=== PATIENT | male | born 1995 | race American Indian/Alaskan Native ===

== ENCOUNTER 2018-11-23 21:41 | Emergency (ER) | payer MEDICAID ==
[2018-11-23 21:50] VITALS: BP 131/83; PULSE 62; RESP 18; TEMP 98; O2SAT 100
--- NOTE | 2018-11-23 21:55 | ED PDOC ---
Arrival/HPI - General Chief Complaint: Abdominal Pain Time Seen by Provider: 11/23/18 21:43 Historian: Patient - History of Present Illness Narrative History of Present Illness (Text): 11/23/18 21:55 Gabriele Conway is a 23 year old male, with no significant past medical history, who presents to the ED complaining of diffuse body aches. Patient also reports generalized abdominal discomfort and nausea today. Patient notes he is homeless and has not had anything to eat, which he believes may be contributing to his symptoms. Patient denies any fever, chills, chest pain, shortness of breath, vomiting, diarrhea, urinary symptoms, back pain, neck pain, headache, dizziness, or any other complaints. Symptom Onset: Gradual Symptom Course: Unchanged Activities at Onset: Light Context: Home Past Medical History - Provider Review Nursing Documentation Reviewed: Yes - Psychiatric Hx Substance Use: No Family/Social History - Physician Review Nursing Documentation Reviewed: Yes Family/Social History: Unknown Family HX Smoking Status: Light Smoker < 10 Cigarettes Daily Hx Alcohol Use: Yes Frequency of alcohol use: Socially Hx Substance Use: No Allergies/Home Meds Allergies/Adverse Reactions: Allergies No Known Allergies Allergy (Verified 11/25/18 23:22) Home Medications: Home Meds Medication Instructions Recorded Confirmed No Known Home Med 11/23/18 11/25/18 Review of Systems - Physician Review All systems were reviewed & negative as marked: Yes - Review of Systems Constitutional: Normal. absent: Fevers Eyes: Normal ENT: Normal Respiratory: Normal. absent: SOB, Cough Cardiovascular: Normal. absent: Chest Pain Gastrointestinal: Abdominal Pain, Nausea. absent: Diarrhea Genitourinary Male: Normal. absent: Dysuria, Frequency, Hematuria, Urinary Output Changes Musculoskeletal: Myalgias. absent: Back Pain, Neck Pain Skin: Normal. absent: Rash Neurological: Normal. absent: Headache, Dizziness Endocrine: Normal Hemo/Lymphatic: Normal Psychiatric: Normal Physical Exam Vital Signs Reviewed: Yes Vital Signs Temp Pulse Resp BP Pulse Ox 11/23/18 21:49 98.0 F 62 18 131/83 100 Temperature: Afebrile Blood Pressure: Normal Pulse: Regular Respiratory Rate: Normal Appearance: Positive for: Well-Appearing, Non-Toxic, Comfortable Pain Distress: None Mental Status: Positive for: Alert and Oriented X 3 - Systems Exam Head: Present: Atraumatic, Normocephalic Pupils: Present: PERRL Extroacular Muscles: Present: EOMI Conjunctiva: Present: Normal Mouth: Present: Moist Mucous Membranes Neck: Present: Normal Range of Motion Respiratory/Chest: Present: Clear to Auscultation, Good Air Exchange. No: Respiratory Distress, Accessory Muscle Use Cardiovascular: Present: Regular Rate and Rhythm, Normal S1, S2. No: Murmurs Abdomen: No: Tenderness, Distention, Peritoneal Signs Back: Present: Normal Inspection Upper Extremity: Present: Normal Inspection. No: Cyanosis, Edema Lower Extremity: Present: Normal Inspection. No: Edema Neurological: Present: GCS=15, CN II-XII Intact, Speech Normal Skin: Present: Warm, Dry, Normal Color. No: Rashes Psychiatric: Present: Alert, Oriented x 3, Normal Insight, Normal Concentration Medical Decision Making ED Course and Treatment: 11/23/18 21:55 Impression: 23 year old male complaining of diffuse body aches, abdominal pain, and nausea. Plan: -- Labs -- Urinalysis, urine drug screen -- Reassess and disposition Prior Visits: Notes and results from previous visits were reviewed. Progress Notes: 11/24/18 00:56 Informed by RNchristopher from Emergency room. - Scribe Statement The provider has reviewed the documentation as recorded by the Juan Pablo Blanc Provider Scribe Attestation: All medical record entries made by the Scribe were at my direction and personally dictated by me. I have reviewed the chart and agree that the record accurately reflects my personal performance of the history, physical exam, medical decision making, and the department course for this patient. I have also personally directed, reviewed, and agree with the discharge instructions and disposition. Disposition/Present on Arrival - Present on Arrival Any Indicators Present on Arrival: No History of DVT/PE: No History of Uncontrolled Diabetes: No Urinary Catheter: No History of Decub. Ulcer: No History Surgical Site Infection Following: None - Disposition Have Diagnosis and Disposition been Completed?: Yes Diagnosis: Weakness Disposition: ELOPEMENT - ER ONLY Disposition Time: 01:00 Condition: UNKNOWN Discharge Instructions (ExitCare): Weakness (ED) Forms: [employer] (Romanian)
[2018-11-23 23:07] LABS: BASO # 0.03 K/mm3 (0.0-2.0); BASO % 0.2 % (0.0-3.0); EOS # 0.1 (0.0-0.7); EOS % 1.1 % (1.5-5.0); HEMOGLOBIN 14.7 g/dL (14.0-18.0); LYMPH # 2.9 (1.2-3.4); LYMPH % 23.8 % (22.0-35.0); MEAN CELL VOLUME 89.8 fl (80.0-105.0); MEAN CORPUSCULAR HEMOGLOBIN 30.7 pg (25.0-35.0); MEAN CORPUSCULAR HGB CONC 34.2 g/dl (31.0-37.0); MEAN PLATELET VOLUME 11.1 fl (7.0-11.0); MONO % 7.9 % (1.0-6.0); RBC 4.79 10^6/uL (3.5-6.1); RED CELL DISTRIBUTION WIDTH 12.9 % (11.5-14.5); WHITE BLOOD COUNT 12.3 10^3/uL (4.5-11.0)
[2018-11-23 23:16] LABS: ALB/GLOB RATIO 1.3 (1.1-1.8); ALBUMIN 4.6 g/dL (3.0-4.8); ALT/SGPT 37 U/L (7-56); AST/SGOT 55 U/L (17-59); BLOOD UREA NITROGEN 19 mg/dL (7-21); CALCIUM 9.5 mg/dL (8.4-10.5); GFR NON-AFRICAN AMERICAN > 60
[2018-11-23 23:36] LABS: BARBITURATES, UR NEGATIVE (NEGATIVE); BENZODIAZEPINES, UR NEGATIVE (NEGATIVE); OPIATES, UR NEGATIVE (NEGATIVE); PHENCYCLIDINE, UR NEGATIVE (NEGATIVE)
[2018-11-24 00:14] LABS: URINE BILIRUBIN NEGATIVE (NEGATIVE); URINE BLOOD NEGATIVE (NEGATIVE); URINE GLUCOSE (UA) NEGATIVE (NEGATIVE); URINE LEUKOCYTE ESTERASE NEGATIVE Leu/uL (NEGATIVE); URINE PROTEIN NEGATIVE mg/dL (<30 mg/dL); URINE UROBILINOGEN 0.2 E.U./dL (<1 E.U./dL)
[2018-11-24 00:15] LABS: URINE APPEARANCE CLEAR (CLEAR); URINE COLOR YELLOW (YELLOW)
== END 2018-11-24 01:07 | disposition left against medical advice (07) ==
LOC: ED 21:41
DX: R53.1 Weakness (principal)

== ENCOUNTER 2018-11-24 03:07 | Inpatient (IN) | payer MEDICAID ==
[2018-11-24 03:18] VITALS: BMI 24.3
--- NOTE | 2018-11-24 03:59 | ED PDOC ---
Arrival/HPI - General Chief Complaint: Psychiatric Evaluation Time Seen by Provider: 11/24/18 03:11 Historian: Patient - History of Present Illness Narrative History of Present Illness (Text): 11/24/18 03:20 Gabriele Conway is a 23 year old male, whose past medical history includes schizophrenia, who presents to the ED complaining of depression. Patient states has been feeling increasingly depressed and has been having thoughts of killing himself. Patient was seen in the ED earlier this evening but eloped prior to discharge. Patient denies any homicidal ideation, fever, chills, chest pain, shortness of breath, nausea, vomiting, diarrhea, urinary symptoms, back pain, neck pain, headache, dizziness, or any other complaints. Symptom Onset: Gradual Symptom Course: Unchanged Activities at Onset: Light Context: Home Past Medical History - Provider Review Nursing Documentation Reviewed: Yes - Psychiatric Hx Schizophrenia: Yes Hx Substance Use: No - Anesthesia Hx Anesthesia: No Hx Anesthesia Reactions: No Hx Malignant Hyperthermia: No Family/Social History - Physician Review Nursing Documentation Reviewed: Yes Family/Social History: Unknown Family HX Smoking Status: Light Smoker < 10 Cigarettes Daily Hx Alcohol Use: Yes Hx Substance Use: No Allergies/Home Meds Allergies/Adverse Reactions: Allergies No Known Allergies Allergy (Verified 11/25/18 23:22) Home Medications: Home Meds Medication Instructions Recorded Confirmed No Known Home Med 11/23/18 11/25/18 Review of Systems - Physician Review All systems were reviewed & negative as marked: Yes - Review of Systems Constitutional: Normal. absent: Fevers Eyes: Normal ENT: Normal Respiratory: Normal. absent: SOB, Cough Cardiovascular: Normal. absent: Chest Pain Gastrointestinal: Normal. absent: Abdominal Pain, Diarrhea, Nausea, Vomiting Genitourinary Male: Normal. absent: Dysuria, Frequency, Hematuria, Urinary Output Changes Musculoskeletal: Normal. absent: Back Pain, Neck Pain Skin: Normal. absent: Rash Neurological: Normal. absent: Headache, Dizziness Endocrine: Normal Hemo/Lymphatic: Normal Psychiatric: Depression, Suicidal Ideation Physical Exam Vital Signs Reviewed: Yes Vital Signs Temp Pulse Resp BP Pulse Ox 11/24/18 03:25 97.8 F 52 L 18 119/67 100 Temperature: Afebrile Blood Pressure: Normal Pulse: Regular Respiratory Rate: Normal Appearance: Positive for: Well-Appearing, Non-Toxic, Comfortable Pain Distress: None Mental Status: Positive for: Alert and Oriented X 3 - Systems Exam Head: Present: Atraumatic, Normocephalic Pupils: Present: PERRL Extroacular Muscles: Present: EOMI Conjunctiva: Present: Normal Mouth: Present: Moist Mucous Membranes Neck: Present: Normal Range of Motion Respiratory/Chest: Present: Clear to Auscultation, Good Air Exchange. No: Respiratory Distress, Accessory Muscle Use Cardiovascular: Present: Regular Rate and Rhythm, Normal S1, S2. No: Murmurs Abdomen: No: Tenderness, Distention, Peritoneal Signs Back: Present: Normal Inspection Upper Extremity: Present: Normal Inspection. No: Cyanosis, Edema Lower Extremity: Present: Normal Inspection. No: Edema Neurological: Present: GCS=15, CN II-XII Intact, Speech Normal Skin: Present: Warm, Dry, Normal Color. No: Rashes Psychiatric: Present: Alert, Oriented x 3, Normal Insight, Normal Concentration Medical Decision Making ED Course and Treatment: 11/24/18 03:20 Impression: 23 year old male complaining of depression and suicidal ideation. Plan: -- EKG -- Chest X-ray -- Alcohol level -- Reassess and disposition Prior Visits: Notes and results from previous visits were reviewed. Pt was seen earlier this evening for diffuse body aches and abdominal discomfort. Pt had basic labwork performed, which was grossly unremarkable. Urine drug screen performed was positive for cannabinoids, but otherwise negative. Pt eloped from ED prior to discharge. Progress Notes: Reviewed EKG, sinus bradycardia at 53 bpm. Sinus arrhythmia. Non-specific ST/T wave changes. Chest X-ray reviewed, shows no acute processes. Pt medically cleared for psychiatric evaluation and admission. 11/24/18 05:35 Pt seen and evaluated by JACQUI Caruso, who discussed case with psychiatrist conveyancer. Pt accepted for admission to [facility] for schizophrenia under Dr. Larkin's service. 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 I have reviewed the chart and agree that the record accurately reflects my personal performance of the history, physical exam, medical decision making, and the department course for this patient. I have also personally directed, reviewed, and agree with the discharge instructions and disposition. Disposition/Present on Arrival - Present on Arrival Any Indicators Present on Arrival: No History of DVT/PE: No History of Uncontrolled Diabetes: No Urinary Catheter: No History of Decub. Ulcer: No History Surgical Site Infection Following: None - Disposition Have Diagnosis and Disposition been Completed?: Yes Diagnosis: Schizophrenia Disposition: HOSPITALIZED Disposition Time: 05:35 Condition: GOOD
[2018-11-24 07:27] VITALS: O2SAT 100
--- NOTE | 2018-11-24 08:19 | RAD ---
Date of service: 11/24/2018 HISTORY: pes COMPARISON: No prior. TECHNIQUE: 1 view obtained. FINDINGS: LUNGS: No active pulmonary disease. PLEURA: No significant pleural effusion identified, no pneumothorax apparent. CARDIOVASCULAR: No aortic atherosclerotic calcification present. Normal cardiac size. No pulmonary vascular congestion. OSSEOUS STRUCTURES: No significant abnormalities. VISUALIZED UPPER ABDOMEN: Normal. OTHER FINDINGS: None. IMPRESSION: No active disease.
[2018-11-24] MEDS: DiphenhydrAMINE 50 mg/ml Inj IM PRN (13:11)
--- NOTE | 2018-11-24 14:55 | PCM.PSYCH ---
Initial Psychiatric Evaluation - Initial Psychiatric Evaluation Type of Admission: Voluntary Legal Status: Capacity Chief Complaint (in patient's own words): "My body will tell me when I am ready to go" Patient's Reaction to Hospitalization: Patient was admitted for evaluation and stabilization of causes, inability to function, possible suicidal ideation. History of Present Illness and Precipitating Events: shortly pt is 23yo AAM with history of schizophrenia, history of psychiatric admissions, most likely noncompliance with medications, initially came to the ED complaining abdominal pain, while evaluation pt eloped, then came back to the hospital saying that he hears voices, has thoughts of killing self, in the emergency room patient presented to be disorganized, psychotic, pt requires further evaluation and stabilization meds adjustment and titration. when patient came to the unit, pt acted out, saying that he does not know why he is admitted to the psychiatric inpatient unit, patient reported that he does not remember signing consent, he is here "to take a shower, brush my teeth, and then to go home." pt refused to talk to the RN, staff. 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 pt presented with very poor personal hygiene, disheveled, very strong body odor, poor ADLs. Patient presented to be psychotic, was making statements such "my body will tell me when I am ready to go" patient reported that he has more than 3 psychiatric admissions in the past, patient reported that he is not on any psychotropic medications he does not need to be open wound, patient reported that he does not hear voices or not seeing things but patient was observed talking to himself, patient denied thoughts of harming himself or others but impulse is obviously unpredictable. Patient refused to provide any information, later on patient required to be medicated with Haldol 5mg+Benadryl 50mg+ Ativan 2mg, with good effect, pt fell asleep. patient denied visible drugs, denies alcohol, social, denied smoking. At the same time urine drug screen was positive for cannabis. Patient reported being healthy, but has leukocytosis, medical consult will be called. Family history: Unknown. Lab Results 11/24/18 03:55: Alcohol, Quantitative < 10 Vital Signs Temp Pulse Resp BP Pulse Ox 11/24/18 12:21 79 18 127/89 100 11/24/18 07:26 60 18 139/58 L 100 11/24/18 05:39 61 17 127/82 99 11/24/18 03:25 97.8 F 52 L 18 119/67 100 The patient failed the outpatient lower level of care: Yes Current Medications: Active Medications Generic Name Dose Route Start Last Admin Trade Name Freq PRN Reason Stop Dose Admin Diphenhydramine HCl 50 mg 11/24/18 12:50 11/24/18 13:11 Benadryl IM 50 mg Q6H PRN Administration Agitation Diphenhydramine HCl 50 mg 11/24/18 12:50 Benadryl PO Q6H PRN Agitation Haloperidol 5 mg 11/24/18 13:00 11/24/18 13:52 Haldol PO Not Given QID SHARLA Protocol Haloperidol Lactate 5 mg 11/24/18 12:53 11/24/18 13:10 Haldol IM 5 mg Q6H PRN Administration agitaiton Protocol Lorazepam 2 mg 11/24/18 12:54 11/24/18 13:11 Ativan IM 2 mg Q6 PRN Administration Agitation Protocol Lorazepam 2 mg 11/24/18 12:54 Ativan PO Q6H PRN anxiety/agitation Protocol Lorazepam 2 mg 11/24/18 13:04 Ativan PO BID PRN anxiety/agitation Protocol Olanzapine 5 mg 11/24/18 16:00 Zyprexa Zydis PO BID SHARLA Protocol Olanzapine 5 mg 11/24/18 22:00 Zyprexa Zydis PO HS SHARLA Protocol Present on Admission - Present on Admission Any Indicators Present on Admission: No History of DVT/PE: No History of Uncontrolled Diabetes: No Urinary Catheter: No Decubitus Ulcer Present: No Review of Systems - Review of Systems Systems not reviewed;Unavailable: Acuity of Condition - Constitutional Constitutional: As Per HPI - EENT Eyes: As Per HPI Ears: As Per HPI Nose/Mouth/Throat: As Per HPI - Cardiovascular Cardiovascular: As Per HPI - Respiratory Respiratory: As Per HPI - Gastrointestinal Gastrointestinal: As Per HPI - Genitourinary Genitourinary: As Per HPI - Reproductive: Male Reproductive:Male: As Per HPI - Musculoskeletal Musculoskeletal: As Per HPI - Integumentary Integumentary: As Per HPI - Neurological Neurological: As Per HPI - Psychiatric Psychiatric: As Per HPI - Endocrine Endocrine: As Per HPI - Hematologic/Lymphatic Hematologic: As Per HPI Past Patient History - Past Psychiatric History Previous Treatment History: Inpatient Prior Professional Help: See HPI Prior Psychiatric Treatment: See HPI At what hospital: See HPI Duration: See HPI Nature of Treatment: See HPI Explanation of prior treatment: See HPI - PSYCHIATRIC Hx Psychophysiologic Disorder: Yes Hx Schizophrenia: Yes Hx Substance Use: No - Tetanus Immunizations Tetanus Immunization: Unknown - CARDIAC Hx Cardiac Disorders: No Hx Hypertension: No - PULMONARY Hx Tuberculosis: No - NEUROLOGICAL HX Cerebrovascular Accident: No Hx Seizures: No - HEMATOLOGICAL/ONCOLOGICAL Hx Cancer: No Hx Human Immunodeficiency Virus (HIV): No - GENITOURINARY/GYNECOLOGICAL Hx Sexually Transmitted Disorders: No - SURGICAL HISTORY Hx Surgeries: No - ANESTHESIA Hx Anesthesia: No Hx Anesthesia Reactions: No Hx Malignant Hyperthermia: No - Medical/Surgical History Reviewed & confirmed: by mn Meds Allergies/Adverse Reactions: Allergies Allergy/AdvReac Type Severity Reaction Status Date / Time No Known Allergies Allergy Verified 11/24/18 14:34 Mental Status Examination - Personal Presentation Personal Presentation: Looks stated age - Affect Affect: Flat - Motor Activity Motor Activity: Violent - Reliability in Providing Information Reliability in Providing Information: Poor, due to alteration in thoughts, Poor, due to altered mood, Poor, due to cognitve impairment - Speech Speech: Disorganized - Formal Thought Process Formal Thought Process: Hallucinations, Delusions, Paranoia, Loosening of associations - Obsessions/Compulsions Obsessions: None Compulsions: None - Cognitive Functions Orientation: Person, Place, Situation Sensorium: Alert Attention/Concentration: Easily distracted Abstract Thinking: [place] Estimate of Intelligence: Below average Judgement: Intact, as evidence by: Insight regarding need for hospitalization - Risk Risk: Diminished functioning - Strength & Assets Inventory Strength & Assets Inventory: Other (Good physical health) - Limitations Limitations: Other (Noncompliance, psychosis, impulses unpredictable) Psychiatric Physical Exam - Physical Exam Reviewed and confirmed: Emergency Department Physical Exam Results - Vital Signs Recent Vital Signs: Last Vital Signs Temp 97.8 F 11/24/18 03:25 Pulse 79 11/24/18 12:21 Resp 18 11/24/18 12:21 BP 127/89 11/24/18 12:21 Pulse Ox 100 11/24/18 12:21 - Labs Labs: Laboratory Results - last 24 hr 05/16/19 03:55 Alcohol, Quantitative < 10 - EKG Data EKG Interpreted by: ER Physician DSM Plan - DSM 5 DSM 5 Diagnosis: Schizophrenia spectrum Cannabis abuse - Recommended/Plan of Treatment Treatment Recommendations and Plan of Treatment: Milieu/structure/supportive therapy SW consultation for discharge plan and social issues Med management Zyprexa 5 mg twice a day and 5 mg of the nighttime for psychosis Ativan 2 mg twice a day and at the nighttime for mood stabilization As needed medication: Haldol 5 Benadryl 50, Ativan 2 IM/p.o. every 6 hours Family involvement Follow up on labs Will monitor closely Pt was educated about risk/benefits and alternatives of medications, coping strategies (safety plan, suicide prevention), relapse prevention, importance of follow up with psychiatrist and therapist, stay away from drugs/alcohol/smoking Projected ELOS: 7 days Prognosis: Guarded Discharge Plan and Discharge Criteria: Patient will pose no imminent danger to self or others - Tobacco Cessation Tobacco Use Treatment Practical Counseling Provided: No Reason for not providing: Patient is agitated, not forthcoming with information - Alcohol or Substance Abuse Does the patient have an Alcohol or Substance Abuse Disorder: Yes Initial Psych Certification - Initial Certification I certify that the inpatient psychiatric facility admission was medically necessary for either: Treatment which could reasonbly be expected to improve pt's condition I estimate of hospitalization is necessary for proper treatment of the patient: 7 Unit of Time: Days My plans for post-hospital care for this patient are: The treatment program
--- NOTE | 2018-11-24 15:19 | PCM.BM ---
Treatment Plan Problems - Problems identified on initial assessmt High Risk: Violence Date Initiated: 11/24/18 Time Initiated: 13:00 Assessment reference: NA Status: Active Priority: 1 Auditory Hallucinations Date Initiated: 11/24/18 Time Initiated: 13:00 Assessment reference: NA Status: Active Priority: 2 Altered Thought Process Date Initiated: 11/24/18 Time Initiated: 13:00 Assessment reference: NA Status: Active Priority: 3 Medication Nonadherence Date Initiated: 11/24/18 Time Initiated: 13:00 Assessment reference: NA Status: Active Priority: 4 Ineffective Coping Date Initiated: 11/24/18 Time Initiated: 13:00 Priority: 5 Treatment assets and liabiliti Patient Assests: ADL independent, negotiates basic needs Patient Liabilities: live alone, financial problems, poor support system - Milieu Protocol Maintain good personal hygiene: daily Encourage regular showers, daily Remind patient to perform daily oral care, every shift Assist patient to perform ADL's Maintain personal safety: every shift Educate patient to report safety concerns to staff, every shift Monitor environment for contraband/sharps Medication safety: Monitor for expected outcome, potential side effects: every shift, Assess barriers to learning: every shift, Assess readiness for medication education: every shift Milieu Narrative: Milieu/structure/supportive therapy SW consultation for discharge plan and social issues Med management Zyprexa 5 mg twice a day and 5 mg of the nighttime for psychosis Ativan 2 mg twice a day and at the nighttime for mood stabilization As needed medication: Haldol 5 Benadryl 50, Ativan 2 IM/p.o. every 6 hours Family involvement Follow up on labs Will monitor closely Pt was educated about risk/benefits and alternatives of medications, coping strategies (safety plan, suicide prevention), relapse prevention, importance of follow up with psychiatrist and therapist, stay away from drugs/alcohol/smoking Family Contact Family involvement: Famliy/SO not involved Family contact: Patient declines to allow family contact at present - Goals for Treatment Patient goals for treatment: Refused to answer Discharge/Continuing Care - Education Needs Education Needs: Patient Medication, Patient Diagnosis/Disease Process, Patient Coping Skills, Patient Anger Management skills, Patient Placement options, Patient Community resources, Patient Activities of Daily Living, Patient Pain, Patient Nutrition, Patient Uses of Medical Equipment, Patient Health Practices/Safety, Patient Personal Hygiene/Grooming, Patient Aftercare Safety Plan - Discharge Discharge Criteria: Tolerates medication w/o severe side effects - Treatment Team Participation Patient/Family/SO Statement: Milieu/structure/supportive therapy SW consultation for discharge plan and social issues Med management Zyprexa 5 mg twice a day and 5 mg of the nighttime for psychosis Ativan 2 mg twice a day and at the nighttime for mood stabilization As needed medication: Haldol 5 Benadryl 50, Ativan 2 IM/p.o. every 6 hours Family involvement Follow up on labs Will monitor closely Pt was educated about risk/benefits and alternatives of medications, coping strategies (safety plan, suicide prevention), relapse prevention, importance of follow up with psychiatrist and therapist, stay away from drugs/alcohol/smoking
[2018-11-24] MEDS: OLANZapine 5 mg Disintegrating Tab PO SCH (16:28)
--- NOTE | 2018-11-24 16:51 | CARD ---
APPROVED REPORT Date of service: 11/24/2018 EKG Measurement Heart [id number] <Conclusion> Sinus bradycardia with sinus arrhythmia Minimal voltage criteria for LVH, may be normal variant ST elevation, consider early repolarization, pericarditis CCR Abnormal ECG
[2018-11-24] MEDS ORDERED: OLANZapine 5 mg Disintegrating Tab PO SCH (22:00)
[2018-11-25 05:12] VITALS: TEMP 98.4
--- NOTE | 2018-11-25 06:07 | PCM.RRT ---
<Zee Berman - Last Filed: 11/25/18 06:25> [employer] Nurse Assessment - Situation Date: 11/25/18 [employer] Location:: Psychiatry Unit Plan - Assessment of Findings&Treatment Plan OVERNIGHT RESIDENT GENEVIEVE LI NOTE ZEE BERMAN PGY1 Genevieve li called by nursing staff x 2 regarding patient being agitated, threatening to leave. Per nursing staff, pt is elopement risk. Pt agreed to take oral medications in exchange for his clothing. Genevieve li called second time and patient was escorted to seclusion room. Pt refusing vitals/exam. Pt appeared to calm down after conversation <Kyle Montgomery - Last Filed: 11/26/18 06:50> Attending/Attestation - Attestation I have personally seen and examined this patient.: No I have fully participated in the care of the patient.: No I have reviewed all pertinent clinical information, including history, physical exam and plan: No
[2018-11-25] MEDS: OLANZapine 5 mg Disintegrating Tab PO SCH ×2 (08:15→15:53)
[2018-11-25 09:24] LABS: BASO # 0.03 K/mm3 (0.0-2.0); BASO % 0.5 % (0.0-3.0); EOS # 0.1 (0.0-0.7); EOS % 1.3 % (1.5-5.0); HEMOGLOBIN 14.4 g/dL (14.0-18.0); LYMPH # 1.2 (1.2-3.4); LYMPH % 19.8 % (22.0-35.0); MEAN CELL VOLUME 90.6 fl (80.0-105.0); MEAN CORPUSCULAR HGB CONC 33.1 g/dl (31.0-37.0); MEAN PLATELET VOLUME 10.9 fl (7.0-11.0); MONO # 0.4 (0.1-0.6); MONO % 6.7 % (1.0-6.0); RBC 4.8 10^6/uL (3.5-6.1); RED CELL DISTRIBUTION WIDTH 13.1 % (11.5-14.5); WHITE BLOOD COUNT 6.3 10^3/uL (4.5-11.0)
[2018-11-25 09:33] LABS: HDL CHOLESTEROL 57 mg/dL (29-60)
[2018-11-25 09:44] LABS: LDL CHOLESTEROL 64 mg/dL (0-129)
[2018-11-25] MEDS: DiphenhydrAMINE 50 mg/ml Inj IM PRN ×2 (11:36→16:45)
--- NOTE | 2018-11-25 12:31 | PCM.PYCHPN ---
Psychiatric Progress Note - Psychiatric Progress Note Patient seen today, length of contact: 30min Patient Chief Complaint: "can you call police Problems Identified/Issues Discussed: attempted to discuss treatment plan, past h/o, medications, but pt agitated, not able to participate/ Medical Problems: pt has EKG changes pt denied any physical complaints refused to talk to the medical team will reconsult again Diagnostic Results: 11/25/18 08:15 Lab Results 11/25/18 08:15: Triglycerides 62, Cholesterol 146, LDL Cholesterol Direct 64, HDL Cholesterol 57 11/25/18 08:15: WBC 6.3 D, RBC 4.80, Hgb 14.4, Hct 43.5, MCV 90.6, MCH 30.0, MCHC 33.1, RDW 13.1, Plt Count 219, MPV 10.9, Neut % (Auto) 71.7 H, Lymph % (Auto) 19.8 L, [place] % (Auto) 6.7 H, Eos % (Auto) 1.3 L, Baso % (Auto) 0.5, Lymph # (Auto) 1.2, [place] # (Auto) 0.4, Eos # (Auto) 0.1, Baso # (Auto) 0.03, Absolute Neuts (auto) 4.50 11/24/18 03:55: Alcohol, Quantitative < 10 Vital Signs Temp Pulse Resp BP Pulse Ox 11/25/18 05:11 98.4 F 76 18 115/74 11/24/18 16:13 56 L 151/68 H 11/24/18 12:40 97.9 F 52 L 22 112/55 L 11/24/18 12:21 79 18 127/89 100 11/24/18 07:26 60 18 139/58 L 100 11/24/18 05:39 61 17 127/82 99 11/24/18 03:25 97.8 F 52 L 18 119/67 100 DSM 5 Symptoms Update: shortly pt is 23yo AAM with history of schizophrenia, history of psychiatric admissions, most likely noncompliance with medications, initially came to the ED complaining abdominal pain, while evaluation pt eloped, then came back to the hospital saying that he hears voices, has thoughts of killing self, in the emergency room patient presented to be disorganized, psychotic, pt requires further evaluation and stabilization meds adjustment and titration. when patient came to the unit 11/24/18, pt acted out, saying that he does not know why he is admitted to the psychiatric inpatient unit, patient reported that he does not remember signing consent, he is here "to take a shower, brush my teeth, and then to go home." pt refused to talk to the RN, staff. see admission note for more detailed information. at the initial assessment pt presented with very poor personal hygiene, disheveled, very strong body odor, poor ADLs. moreover presented to be psychotic, was making statements such "my body will tell me when I am ready to go" patient reported that he has more than 3 psychiatric admissions in the past, patient reported that he is not on any psychotropic medications he does not need to be open wound, patient reported that he does not hear voices or not seeing things but patient was observed talking to himself, patient denied thoughts of harming himself or others but impulse is obviously unpredictable. Patient refused to provide any information, later on patient required to be medicated with Haldol 5mg+Benadryl 50mg+ Ativan 2mg, with good effect, pt fell asleep. as per RN report over night 11/25/18, pt became agitated, psychotic, was demanding to leave, submitted 48hr notice. pt also felt that RNs in the unit not "real, I want to talk to the real nurse". over night time pt needed to be in restraint and frequent IM of [place] ldol/Benadryl/ativan. pt was seen at the treatment team meeting, pt presented to be guarded, paranoid, and disorganized. pt said that he came to the hospital "for psychological and physical problems", tp said that he never said he heard voices. pt was mumbling something incoherent. pt was observed pacing in the unit, then came back, saying that he needs to call police "because I need to ask something..." Medical team attempted to speak to the pt because of leukocytosis which improved, but pt refused to talk to them. pt is resistant to take medications, disorganized, agitated. pt submitted 48hr notice, will call for [facility] screening. Impression: most likely pt has schizophrenia/schizoaffective disorder UDS was positive for cannabis. Medication Change: Yes (depakote, zyprexa) Medical Record Reviewed: Yes Consults ordered or reviewed: medical team attempted to speak to the pt, but pt refused. Mental Status Examination - Cognitive Function Orientation: Person, Place, Situation Memory: Impaired Attention: Poor Concentration: Poor Association: Loose Fund of Knowledge: Poor - Mood Mood: Other (angry) - Affect Affect: Flat (irritable, hostile) - Speech Speech: Slurred (alternates with screaming and yelling) - Formal Thought Process Formal Thought Process: Hallucinations, Delusions, Paranoia, Loosening of associations - Suicidal Ideation Suicidal Ideation: No Plan: pt denied - Homicidal Ideation Homicidal Ideation: No Goal/Treatment Plan - Goal/Treatment Plan Need for Continued Stay: Remain at risks for inpatient hospitalization, Severe depression anxiety, Discharge may exacerbated symptoms, Severe functional impairment Progress Toward Problem(s) and Goals/Treatment Plan: Milieu/structure/supportive therapy SW consultation for discharge plan and social issues Med management Zyprexa 5 mg twice a day and 5 mg of the nighttime for psychosis Ativan 2 mg twice a day and at the nighttime for mood stabilization depakote started haldol was started by psychiatrist it support consultant As needed medication: Haldol 5 Benadryl 50, Ativan 2 IM/p.o. every 6 hours Family involvement Follow up on labs Will monitor closely Pt was educated about risk/benefits and alternatives of medications, coping strategies (safety plan, suicide prevention), relapse prevention, importance of follow up with psychiatrist and therapist, stay away from drugs/alcohol/smoking pt submitted 48hr notice, pt will be screened for involuntary commitment Estimated Date of D/C: 11/30/18
[2018-11-25] MEDS ORDERED: Divalproex 500 mg DR(BID formulation) PO SCH ×2 (16:00→22:00)
[2018-11-25 17:21] VITALS: BP 128/76; PULSE 71; RESP 20
--- NOTE | 2018-11-25 18:44 | CON ---
DATE: 11/25/2018 HISTORY OF PRESENT ILLNESS: I was called to the psychiatric floor to be a medical consult. I saw him in the room that is padded and he is now on restraints. He is a 23-year-old man who presents complaining of depression, having thoughts of killing himself. Denies homicidal ideation. He is wanting to leave. He had multiple issues when arriving here and we had to do a restraints with a Code Deng I understand. PAST MEDICAL HISTORY: He has a past medical history that includes schizophrenia. FAMILY HISTORY: No family history that I know of. SOCIAL HISTORY: He smokes cigarettes, alcohol, but no substance abuse. ALLERGIES: NO KNOWN DRUG ALLERGIES. MEDICATIONS: No medications. REVIEW OF SYSTEMS: No acute vision or hearing changes. No sore throat. No shortness of breath or cough. No chest pain. No palpitations. No nausea, vomiting, constipation or diarrhea. No problems urinating. No back pain, no neck pain. No rashes that he knows of or ulcers. No headache or dizziness. No sweating. He is depressed and suicidal. PHYSICAL EXAMINATION: VITAL SIGNS: He has a 97.8 temp, 52 pulse, 18 respiratory rate, 119/67 blood pressure and 100% O2 sat. GENERAL: He is well-appearing, nontoxic, comfortable at the time when I am talking to him. He is alert and oriented x3. HEENT: Head is atraumatic and normocephalic. Extraocular muscles are intact. Pupils equally react to light and accommodation. Throat is moist. NECK: Supple. HEART: Regular rate. Normal, S1 and S2. LUNGS: Decreased breath sounds, but clear to auscultation. Fair inspiration. No wheezes, no rhonchi nor rales. ABDOMEN: Soft and nontender. Positive bowel sounds. No guarding, no rebound, no CVA tenderness. EXTREMITIES: No edema bilaterally. He can move all four extremities well. NEUROLOGIC: GCS is 15. Cranial nerves II through XII grossly intact. Speech is normal. No apparent neurological signs. Alert and oriented x3. SKIN: Warm and dry. No apparent rashes or ulcers. LABORATORY DATA: He had tests done. He has a 6.3 white count, 14.4 hemoglobin, 43.5 hematocrit with 219 platelets. He has a 262 triglycerides, 146 cholesterol, 64 LDL and HDL is 57. Alcohol is less than 10. He had a chest x-ray that showed no acute disease and an EKG that shows sinus bradycardia with sinus arrhythmia, minimum criteria of LVH. ASSESSMENT AND PLAN: He is here for bipolar, depression, and suicidal ideation. We will followup. Thank you very much for allowing me to participate. We will check his labs tomorrow. Gilmer Horta DO
--- NOTE | 2018-11-26 01:41 | CP.PCM.PCO ---
<Zee Berman - Last Filed: 11/26/18 01:45> Addendum Addendum: OVERNIGHT RESIDENT NOTE ZEE BERMAN PGY1 Nursing staff from paged me to evaluate patient who would like to sign himself out against medical advice. Per nursing staff, patient was cleared by psychiatrist, Dr. Ball and discharge order was given to Paras Vasquez. [facility] Screener met with patient on unit and screener found patient did not meet criteria to admit to an involuntary unit. Doctor Quinn advised to offer patient choice of sleeping on unit overnight then discharge AMA. Upon interview, pt was AxO x 3, conversant, had normal thought process, did not appear as a harm to himself or others and denied suicidal/homicidal ideations. He agreed to follow instructions given to him by psychiatric doctors. I explained the benefits of hospitalizations, risks of signing out AMA and alternatives in extensive detail. Pt was in agreement and signed the appropriate paperwork with nursing staff as witness. <Kyle Montgomery - Last Filed: 11/26/18 06:50> Attending/Attestation - Attestation I have personally seen and examined this patient.: No I have fully participated in the care of the patient.: No I have reviewed all pertinent clinical information: No
== END 2018-11-25 22:37 | disposition left against medical advice (07) | DRG 430 ==
LOC: ED 03:07 → ERH 05:35 → PSYC 12:41
PROVIDERS: ADMIT Psychiatry & Neurology Psychiatry; ATTEND Psychiatry & Neurology Psychiatry
DX: F25.9 Schizoaffective disorder, unspecified (principal); F32.9 Major depressive disorder, single episode, unspecified; R45.851 Suicidal ideations; F12.10 Cannabis abuse, uncomplicated; F17.210 Nicotine dependence, cigarettes, uncomplicated; Z78.1 Physical restraint status; Z91.14 Patient's other noncompliance with medication regimen

== ENCOUNTER 2018-11-25 23:09 | Emergency (ER) | payer MEDICAID ==
[2018-11-25 23:10] VITALS: BMI 24.3
--- NOTE | 2018-11-26 00:32 | ED PDOC ---
Arrival/HPI - General Chief Complaint: Alcohol Ingestion Time Seen by Provider: 11/25/18 23:14 Historian: Patient - History of Present Illness Narrative History of Present Illness (Text): 11/26/18 00:30 A 23 year old male, whose past medical history includes schizophrenia, brought in by EMS to the emergency department for intoxication. Limited HPI and ROS secondary to patient's suspected intoxicated state. 11/26/18 02:44 Past Medical History - Provider Review Nursing Documentation Reviewed: Yes - Infectious Disease Hx of Infectious Diseases: None - Tetanus Immunization Tetanus Immunization: Unknown - Cardiac Hx Cardiac Disorders: No Hx Hypertension: No - Pulmonary Hx Tuberculosis: No - Neurological HX Cerebrovascular Accident: No Hx Seizures: No - Hematological/Oncological Hx Cancer: No - Genitourinary/Gynecological Hx Sexually Transmitted Diseases: No - Psychiatric Hx Anxiety: Yes Hx Depression: Yes Hx Schizophrenia: Yes Hx Substance Use: Yes (cannabis) - Anesthesia Hx Anesthesia: No Hx Anesthesia Reactions: No Hx Malignant Hyperthermia: No Family/Social History - Physician Review Nursing Documentation Reviewed: Yes Family/Social History: No Known Family HX Smoking Status: Light Smoker < 10 Cigarettes Daily Hx Alcohol Use: No Hx Substance Use: Yes (cannabis) Allergies/Home Meds Allergies/Adverse Reactions: Allergies No Known Allergies Allergy (Verified 11/25/18 23:22) Home Medications: Home Meds Medication Instructions Recorded Confirmed No Known Home Med 11/23/18 11/25/18 Review of Systems - Review of Systems Systems not reviewed;Unavailable: Intoxicated Physical Exam - Physical Exam Narrative Physical Exam (Text): Gen: VS reviewed, alert, well developed, well nourished, intoxicated, mild distress Eye: EOMI, PERRL ENT: normal pharynx. Neck: no JVD, supple, no adenopathy CV: regular rate, regular rhythm, no rubs,no murmur, S1, S2 Pulm: no distress, clear to auscultation, no wheeze, no rhonchi, breath sounds equal, no rales Abd: soft, nontender, no guarding, no rebound, no rigidity Ext: no edema Skin: good color, no rash, no cyanosis Psych: responds appropriately to questions, normal affect Neuro: oriented x3, CN2-12 intact grossly, motor intact, sensation intact Medical Decision Making ED Course and Treatment: 11/26/18 00:31 Impression: 23 year old male brought in for suspected intoxication. Plan: Reassess and disposition Prior Visits: Notes and results from previous visits were reviewed. Patient was last seen here in the emergency department on 11/24/2018 for depression and SI. Patient was accepted for admission to [facility] for schizophrenia under Dr. Larkin's office. Progress Notes: 11/26/18 02:44 patient is medically stable for psych eval, admit, transfer if needed. 11/26/18 04:51 patient with hx schizophrenia presents to the ED with bizarre behavior, will request pes eval 11/26/18 04:51 11/26/18 05:41 patient is now awake and alert, he states that the only reason he is here is because he doesnt have a place to stay. - Scribe Statement The provider has reviewed the documentation as recorded by the Scribe Drew Lopez All medical record entries made by the Scribe were at my direction and personally dictated by me. I have reviewed the chart and agree that the record accurately reflects my personal performance of the history, physical exam, medical decision making, and the department course for this patient. I have also personally directed, reviewed, and agree with the discharge instructions and disposition. Disposition/Present on Arrival - Present on Arrival Any Indicators Present on Arrival: No History of DVT/PE: No History of Uncontrolled Diabetes: No Urinary Catheter: No History of Decub. Ulcer: No History Surgical Site Infection Following: None - Disposition Have Diagnosis and Disposition been Completed?: Yes Diagnosis: Homelessness Disposition: HOME/ ROUTINE Disposition Time: 05:42 Patient Plan: Discharge Condition: STABLE Forms: [employer] (Mongolian)
[2018-11-26 01:43] LABS: BASO # 0.03 K/mm3 (0.0-2.0); BASO % 0.3 % (0.0-3.0); EOS # 0.1 (0.0-0.7); EOS % 1.1 % (1.5-5.0); LYMPH # 1.5 (1.2-3.4); LYMPH % 14.3 % (22.0-35.0); MEAN CELL VOLUME 89.6 fl (80.0-105.0); MEAN CORPUSCULAR HEMOGLOBIN 30.4 pg (25.0-35.0); MEAN PLATELET VOLUME 10.8 fl (7.0-11.0); MONO # 1.3 (0.1-0.6); MONO % 11.8 % (1.0-6.0); RBC 4.6 10^6/uL (3.5-6.1); WHITE BLOOD COUNT 10.7 10^3/uL (4.5-11.0)
[2018-11-26 01:56] LABS: ACETAMINOPHEN < 10.0 ug/ml (10.0-20.0); SALICYLATE < 1 mg/dL (2.0-20.0)
[2018-11-26 01:57] LABS: ALB/GLOB RATIO 1.2 (1.1-1.8); ALBUMIN 4.1 g/dL (3.0-4.8); ALT/SGPT 39 U/L (7-56); AST/SGOT 81 U/L (17-59); BLOOD UREA NITROGEN 18 mg/dL (7-21); CALCIUM 9.1 mg/dL (8.4-10.5); GFR NON-AFRICAN AMERICAN > 60
[2018-11-26 06:32] VITALS: BP 123/74; PULSE 72; RESP 15; O2SAT 99
== END 2018-11-26 05:45 | disposition home or self-care (01) ==
LOC: ED 23:09
DX: Z59.0 Homelessness (principal); F20.9 Schizophrenia, unspecified; F17.210 Nicotine dependence, cigarettes, uncomplicated